=== PATIENT | male | born 1990 | race Caucasian/White ===

== ENCOUNTER 2016-11-30 08:01 | Emergency (ER) | payer OTHER ==
[~2016-11-30] VITALS: Ht 190.5 cm; Wt 106.6 kg
[~2016-11-30 08:01] MED LIST: BISM525O8 PO; HYDR-79 PO; ONDA8TAB12 PO
[2016-11-30 08:10] VITALS: BP 138/84
[2016-11-30] MEDS ORDERED: LIDOCAINE 1%/EPI 1:100,000 20 ML VIAL. ONE (09:39)
--- NOTE | 2016-12-04 08:00 | ED.ADGEN ---
Past History Past Medical History: No Pertinent History, Hypertension, Kidney Stones Past Surgical History: No Surgical History, Other Alcohol Use: None Drug Use: None Adult General Chief Complaint Chief Complaint eye complained HPI HPI Patient is a 26-year-old male presents with soft tissue swelling medial to right eye medial canthus for the past 3 days. Patient state swelling increased after he attempted to 'pop it' yesterday. Denies vision changes, ocular pain, history of MRSA fever and headache. No other symptoms or complaints. Review of Systems Review of Systems Review symptoms as per history of present illness. Current Medications Current Medications Current Medications Medications (Trade) Dose Ordered Sig/Keyonna Start Time Stop Time Status Last Admin Dose Admin Lidocaine/ Epinephrine (Xylocaine 1%-Epi 1:100,000) 20 ml STK-MED ONCE 11/30/16 09:39 11/30/16 09:40 DC Allergies Allergies Allergies Coded Allergies Type Severity Reaction Last Updated Verified Penicillins Allergy Unknown 08/31/16 Yes Physical Exam Physical Exam Constitutional: Well developed, well nourished, no acute distress, non-toxic appearance. HENT: Normocephalic, atraumatic, bilateral external ears normal, oropharynx moist, no oral exudates, nose normal. Eyes: PERRLA, EOMI, conjunctiva normal, small red raised macular medial to medial canthus. No fluctuant drainage or weeping. No surrounding erythema, eyelid swelling, conjunctivitis. Neck: Normal range of motion. Cardiovascular:Heart rate regular rhythm, no murmur. Lungs & Thorax: Bilateral breath sounds clear to auscultation. Abdomen: Bowel sounds normal. Skin: Warm, dry. Back: No tenderness. Extremities: No tenderness. Neurologic: Alert and oriented X 3, normal motor function, normal sensory function, no focal deficits noted. Psychologic: Affect normal, judgement normal, mood normal. Current Patient Data Vital Signs Vital Signs Date Time Temp Pulse Resp B/P Pulse Ox O2 Delivery O2 Flow Rate FiO2 11/30/16 08:10 97.9 75 16 97 Room Air EKG EKG [] Radiology/Procedures Radiology/Procedures [] Impressions: Soft tissue swelling to right medial canthus concern for infection Course & Med Decision Making Course & Med Decision Making Pertinent Labs and Imaging studies reviewed. (See chart for details) [Maculate de-roofed. No purulent discharge appreciated. Antibiotics prescribed recommended PCP follow-up. Return precautions reviewed.] Final Impression Final Impression []1. Soft tissue infection of face Problems: Dragon Disclaimer Dragon Disclaimer This electronic medical record was generated, in whole or in part, using a voice recognition dictation system. GWENDOLYN LOCKHART DO Dec 04, 2016 08:00
== END 2016-11-30 10:00 | disposition home or self-care (01) ==
LOC: ER 08:08
DX: L08.89 Other specified local infections of the skin and subcutaneous tissue (principal); I10 Essential (primary) hypertension; Z87.442 Personal history of urinary calculi; Z88.0 Allergy status to penicillin
CPT/HCPCS: 99283

== ENCOUNTER 2017-01-18 14:49 | Emergency (ER) | payer OTHER ==
--- NOTE | 2017-01-18 15:25 | RAD ---
Left shoulder, 3 views, 01/18/2017: History: Lifting weights, injury No fracture or dislocation is identified. The periarticular soft tissues are unremarkable. IMPRESSION: No acute left shoulder abnormality is detected.
--- NOTE | 2017-01-18 16:05 | PHYS DOC ---
General Chief Complaint: SHOULDER INJURY Stated Complaint: LFT SHOULDER PAIN Time Seen by MD: 15:53 Source: patient Exam Limitations: no limitations Problems: History of Present Illness Initial Comments Patient arrives ambulatory with complaints of having acute onset of left shoulder pain anteriorly and laterally to deltoid region after performing high weight bench presses. He states that in the upswing motion he heard a pop and he had immediate pain. He halted his work out at that time and arrives for further evaluation. He denies any previous injury. He has not had heavy chest lifting since last tuesday. He denies loss of motion. Denies parasthesias or weakness. Has some slight lateral neck discomfort. Denies chest pain or biceps pain. No neck or back pain. Onset: just prior to arrival Severity: moderate Pain/Injury Location: left shoulder Method of Injury: sports injury (while heavy lifting chest) Associated Symptoms: None Allergies: Coded Allergies: Penicillins (Verified Allergy, Unknown, 08/31/16) Past Medical History Medical History: no pertinent history Surgical History: no surgical history Family History Significant Family History: no pertinent family hx Social History Smoker: non-smoker Alcohol: none Drugs: none Review of Systems Constitutional: no symptoms reported Respiratory: no symptoms reported Cardiovascular: no symptoms reported Gastrointestinal: no symptoms reported Musculoskeletal: denies back pain, denies joint pain, denies joint swelling, muscle pain, neck pain (mild to the lateral area) Skin: no symptoms reported Psychiatric/Neurological: no symptoms reported All Other Systems: Reviewed and Negative Physical Exam General Appearance: WD/WN, no apparent distress HEENT: PERRL/EOMI, normal ENT inspection Neck: full range of motion, supple, normal inspection (has some tenderness to the sternocleidomastoid muscle on the left side. Does not hinder rotation of the head.) Cardiovascular/Respiratory: regular rate, rhythm Gastrointestinal: non-tender Back: normal inspection, no vertebral tenderness, muscle spasm (to the lateral deltoid, ac joint region) Shoulder: no evidence of injury, normal ROM (passively.), pain (with active range of motion. ), soft tissue tenderness Elbow/Forearm: normal inspection, no evidence of injury Wrist: normal inspection, no evidence of injury Hand: normal inspection Reflexes: 2+ bicep (R), 2+ bicep (L), 2+ tricep (R), 2+ tricep (L) Neurologic/Tendon: normal sensation, normal motor functions, normal tendon functions, responds to pain, no evidence tendon injury Psychiatric: alert, oriented x 3 Skin: normal color, warm/dry REG CHAMORRO MD Jan 18, 2017 16:05
[2017-01-18 16:39] VITALS: BP 152/86
== END 2017-01-18 16:44 | disposition home or self-care (01) ==
LOC: ER 14:49
DX: M25.512 Pain in left shoulder (principal); Z88.0 Allergy status to penicillin; X58.XXXA Exposure to other specified factors, initial encounter; Y93.89 Activity, other specified; Y92.89 Other specified places as the place of occurrence of the external cause; Y99.8 Other external cause status
CPT/HCPCS: 73030; 99284

== ENCOUNTER 2017-01-22 15:05 | Emergency (ER) | payer OTHER ==
[~2017-01-22] VITALS: Ht 190.5 cm; Wt 106.6 kg
[2017-01-22 15:12] VITALS: BP 132/86
[2017-01-22] MEDS ORDERED: HYDR-971 PO (15:46)
--- NOTE | 2017-01-22 15:46 | PHYS DOC ---
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 He has been seen in the clinic [place] and given instructions. His primary problem today is that he is needing to take hydrocodone for his pain but when he takes hydrocodone he doesn't feel that he is able to work, but they did not give him time off work when he was seen at the clinic [place]. He has only for hydrocodone left. He has not reinjured her shoulder. Review of Systems Review of Systems Constitutional: Denies fever or chills [] Musculoskeletal: Denies other injury than left shoulder Allergies Allergies Allergies Coded Allergies Type Severity Reaction Last Updated Verified Penicillins Allergy Unknown 08/31/16 Yes Physical Exam Physical Exam Constitutional: Well developed, well nourished, no acute distress, non-toxic appearance. [] HENT: Normocephalic, atraumatic, bilateral external ears normal, nose normal. [] Eyes: conjunctiva normal, no discharge. [] Neck: Normal range of motion, no stridor. [] Extremities: Left shoulder is without deformity or swelling. No bony tenderness. There is some tenderness to palpation over the anterior joint space , it is mild. The patient is able to fully overhead extend his left arm. He is able to AB duct his left shoulder against resistance. There is some pain with internal and external rotation against resistance, it is mild. Distal neurovascular intact. Neurologic: Alert and oriented X 3, normal motor function, normal sensory function, no focal deficits noted. [] EKG EKG [] Radiology/Procedures Radiology/Procedures [] Course & Med Decision Making Course & Med Decision Making Pertinent Labs and Imaging studies reviewed. (See chart for details) The patient had x-rays on his previous visit. 26-year-old status post injury that occurred during weight lifting to his left shoulder that sounds like a muscle or ligament strain. I talked to the patient about soft tissue injury, see instructions for plan. [] Dragon Disclaimer Dragon Disclaimer This chart was dictated in whole or in part using Voice Recognition software in a busy, high-work load, and often noisy Emergency Department environment. It may contain unintended and wholly unrecognized errors or omissions. Departure Departure: Impression: Primary Impression: Left shoulder strain Disposition: 01 HOME, SELF-CARE Condition: STABLE Referrals: TANVI MURRAY (PCP) Patient Instructions: Muscle Strain, [id number] Additional Instructions: Continue ice 15-20 minutes out of every 1-2 hours. Continue naproxen as directed. Continue hydrocodone as needed for pain. Be aware that you cannot take this while you work or drive. No work until you are released to work by the follow-up physician. Call clinic on [facility] Tuesday morning to let them know that your shoulder is still hurting and get a follow-up appointment. Scripts Hydrocodone Bit/Acetaminophen (NORCO 5-325 TABLET) 1 Each Tablet 1-2 TAB PO Q4-6HRS for Left shoulder pain, #20 TAB Prov: DUSTIN ISSA MD 01/22/17 DUSTIN ISSA MD Jan 22, 2017 15:46
== END 2017-01-22 15:50 | disposition home or self-care (01) ==
LOC: ER 15:05
DX: S46.912A Strain of unspecified muscle, fascia and tendon at shoulder and upper arm level, left arm, initial encounter (principal); I10 Essential (primary) hypertension; Z87.442 Personal history of urinary calculi; Z88.0 Allergy status to penicillin; X58.XXXA Exposure to other specified factors, initial encounter; Y93.B1 Activity, exercise machines primarily for muscle strengthening; Y99.8 Other external cause status; Y92.89 Other specified places as the place of occurrence of the external cause
CPT/HCPCS: 99283